=== PATIENT | female | born 1945 | race Caucasian/White ===

== ENCOUNTER → 2017-12-07 | Outpatient (CLI) | payer MEDICARE ==
[~2017-12-07] MED LIST: CHOL100012 PO; VITAMIN B12 PO
== END | disposition home or self-care (01) ==
LOC: CVU 11:56
PROVIDERS: ATTEND Internal Medicine Cardiovascular Disease
DX: I65.23 Occlusion and stenosis of bilateral carotid arteries (principal)
CPT/HCPCS: 93880

== ENCOUNTER 2021-05-06 08:49 | Emergency (ER) | payer MEDICARE ==
[~2021-05-06] VITALS: Ht 154.9 cm; Wt 52.3 kg
--- NOTE | 2021-05-06 09:08 | NUR ---
LAND PLANNER: EKG DONE IN TRIAGE.
--- NOTE | 2021-05-06 09:18 | NUR ---
PT TO ROOM, CHANGED INTO GOWN, ALL MONITORS IN PLACE. CALL LIGHT WITHIN REACH. PT C/O RIGHT SIDE CHEST PAIN STARTING AT 0600 THIS AM. DENIES RADIATING & SOB
--- NOTE | 2021-05-06 09:19 | NUR ---
PA AT BS
[2021-05-06] MEDS ORDERED: NITROGLYCERIN SINGLE TAB 0.4 MG SL ONE (09:28)
[2021-05-06] MEDS ORDERED: LORazepam 2 MG/ML, 1ML ONE (09:28)
[2021-05-06] MEDS ORDERED: SODIUM CHLORIDE FLUSH 10ML SYR IVF ONE (09:30)
[2021-05-06] MEDS ORDERED: LORazepam 2 MG/ML, 1ML IVPush ONE (09:30)
[2021-05-06] MEDS ORDERED: NITROGLYCERIN SINGLE TAB 0.4 MG SL PRN (09:30)
[2021-05-06 09:40] LABS: BASOPHILS % (AUTO) 1 % (0-1); EOSINOPHILS % (AUTO) 2 % (1-7); LYMPHOCYTES % (AUTO) 24 % (22-44); MEAN CORPUSCULAR HEMOGLOBIN 33.6 pg (27.0-34.8); MEAN CORPUSCULAR HGB CONC 34.4 g/dL (32.4-35.8); MEAN PLATELET VOLUME 8.2 fL (7.4-10.4); MONOCYTES % (AUTO) 6 % (2-9); NEUTROPHILS % (AUTO) 66 % (42-75); PLATELET COUNT 217 x10^3/uL (130-400); RED CELL DISTRIBUTION WIDTH 13.2 % (9.6-15.2)
--- NOTE | 2021-05-06 09:48 | NUR ---
XRAY AT BS
[2021-05-06 09:52] LABS: ALANINE AMINOTRANSFERASE 24 U/L (12-78); ANION GAP 8 mmol/L (5-15); CALCIUM 9.4 mg/dL (8.5-10.1); CHLORIDE 107 mmol/L (98-107); CREATININE 0.85 mg/dL (0.55-1.02)
[2021-05-06 09:56] LABS: ALKALINE PHOSPHATASE 55 U/L (45-117); BILIRUBIN,TOTAL 0.5 mg/dL (0.2-1.0); TOTAL PROTEIN 7.4 g/dL (6.4-8.2); TROPONIN I < 0.015 ng/mL (0.000-0.045)
--- NOTE | 2021-05-06 10:20 | NUR ---
PT RESTING ON TIM PATEL/IMANI. FAMILY AT BS. CALL LIGHT WITHIN REACH. NO NEEDS AT THIS TIME
[2021-05-06 11:25] VITALS: BP 134/65
--- NOTE | 2021-05-06 11:57 | NUR ---
Patient given discharge instructions and rx, they have confirmed that they understand the instructions. Patient ambulatory with steady gait.
== END 2021-05-06 11:58 | disposition home or self-care (01) ==
LOC: ED 09:27
DX: R07.89 Other chest pain (principal); F41.1 Generalized anxiety disorder
CPT/HCPCS: 36415; 71045; 80053; 84484; 85025; 85379; 93005; 96374; 99285; J2060